=== PATIENT | female | born 1960 | race Hispanic/Latino ===

== ENCOUNTER 2022-07-08 00:57 | Emergency (ER) | payer OTHER ==
[~2022-07-08] VITALS: Ht 165.1 cm; Wt 79.8 kg
[2022-07-08] MEDS ORDERED: VALTREX1000 MG PO (01:20)
== END 2022-07-08 01:50 | disposition home or self-care (01) ==
LOC: FSED 01:12
DX: G51.0 Bell's palsy (principal); R51.9 Headache, unspecified; E11.9 Type 2 diabetes mellitus without complications
CPT/HCPCS: 99282